=== PATIENT | female | born 1965 | race Caucasian/White ===

== ENCOUNTER 2022-05-09 20:56 | Emergency (ER) | payer SELFPAY ==
[~2022-05-09] VITALS: Ht 160 cm; Wt 63.0 kg
[2022-05-09 21:04] VITALS: BP 162/69
== END 2022-05-10 02:16 | disposition left against medical advice (07) ==
LOC: ER 20:56
DX: Z53.21 Procedure and treatment not carried out due to patient leaving prior to being seen by health care provider (principal)